=== PATIENT | female | born 1935 | race Caucasian/White ===

== ENCOUNTER 2022-12-12 14:05 | Observation (INO) | payer MEDICARE, BC ==
[2022-12-12 15:06] LABS: #Monocytes 0.8 thou/uL (0.11-0.59); #Neutrophils 6.4 thou/uL (1.40-6.50); %Basophils 0.1 % (0.0-1.0); %Eosinophils 0.6 % (0.0-10.0); %Lymphocytes 11.7 % (21.0-51.0); %Monocytes 9.7 % (0.0-10.0); %Neutrophils 77.8 % (42.0-75.0); Mean Corpuscular HGB CONC 34.7 g/dL (32.0-36.0); Mean Corpuscular Hemoglobin 32.3 pg (27.0-31.0); Mean Corpuscular Volume 93.1 fl (78.0-98.0); Mean Platelet Volume 7.1 fL (7.4-10.4); Platelet Count 202 10x3/uL (130-400); RBC Distribution Width 12.4 % (11.5-14.5); Red Blood Cell (RBC) Count 4.03 mill/uL (4.20-5.40); White Blood Cell (WBC) Count 8.3 10x3/uL (4.8-10.8)
[2022-12-12 15:30] LABS: ALT (SGPT) 26 U/L (8-55); AST (SGOT) 29 U/L (5-34); Albumin 4.1 g/dL (3.4-4.8); Alkaline Phosphatase 45 U/L (40-110); Anion Gap 16 mmol/L (10-20); BUN (Urea Nitrogen) 24 mg/dL (9.8-20.1); Bilirubin, Total 1.1 mg/dL (0.2-1.2); Calc. Creatinine Clearance 0 mL/min (70-130); Calcium 9.6 mg/dL (7.8-10.44); Carbon Dioxide 24 mmol/L (23-31); Chloride 98 mmol/L (98-107); Estimated GFR 41; Globulin 3.1 g/dL (2.4-3.5); Glucose 125 mg/dL (83-110); Potassium 3.1 mmol/L (3.5-5.1); Protein, Total 7.2 g/dL (5.8-8.1); Sodium 135 mmol/L (136-145)
[2022-12-12] MEDS ORDERED: Potassium Chloride 20 MEQ in Premix Bag 1 BAG IVPB SCH (16:00)
[2022-12-12] MEDS ORDERED: Potassium Chloride 20 MEQ/100 ML PREMIX BAG ONE ×2 (16:11→16:12)
[2022-12-12] MEDS ORDERED: Electrolyte Replacement Protocol 1 EACH FS SCH (18:30)
[2022-12-12 18:45] LABS: Magnesium 1.5 mg/dL (1.6-2.6)
[2022-12-12] MEDS ORDERED: Acetaminophen 325 MG TAB PO PRN (19:24)
[2022-12-12] MEDS ORDERED: Ondansetron ODT 4 MG TAB PO PRN (19:24)
[2022-12-12] MEDS ORDERED: Ondansetron PF 4 MG/2 ML Vial IVP PRN (19:24)
[2022-12-12] MEDS ORDERED: Magnesium Sulfate 2 GM in Sodium Chloride 0.9% 250 ML 250 ML IVPB SCH (19:30)
[2022-12-12] MEDS ORDERED: Magnesium 2 GM/50 ML(in water) 2 GM in Premix Bag 1 BAG IVPB SCH (19:45)
[2022-12-12 20:15] LABS: Anion Gap 13 mmol/L (10-20); BUN (Urea Nitrogen) 24 mg/dL (9.8-20.1); Calc. Creatinine Clearance 0 mL/min (70-130); Calcium 9.4 mg/dL (7.8-10.44); Carbon Dioxide 23 mmol/L (23-31); Chloride 101 mmol/L (98-107); Estimated GFR 49; Glucose 126 mg/dL (83-110); Potassium 3.7 mmol/L (3.5-5.1); Sodium 133 mmol/L (136-145)
[2022-12-12 20:30] VITALS: BMI 20.7
[2022-12-12 20:40] LABS: Bacteria/HPF None Seen HPF (None Seen); Bilirubin Negative (Negative); Blood, Urine Negative (Negative); CAUTI Indications for Culture Dysuria,urgency,freq; Clarity Clear (Clear); Glucose, Urine (Dipstick) Normal (Negative); Ketone, Urine Negative (Negative); Leukocyte Negative Leu/uL (Negative); Nitrite Negative (Negative); Protein, Urine (Dipstick) Negative (Neg-Trace); RBC/HPF 0-3 HPF (0-3); Specific Gravity, Urine 1.012 (1.002-1.036); Squamous Epithelial None Seen HPF (0-3); Urobilinogen Normal mg/dL (Less than 2); WBC/HPF 0-3 HPF (0-3); pH, Urine 6.5 (5.0-9.0)
[2022-12-12 20:41] LABS: Urine Culture Reflex No No
[2022-12-12] MEDS ORDERED: Furosemide 40 MG/4 ML VIAL SLOW IVP SCH (23:45)
[2022-12-13 06:04] LABS: #Eosinphils 0.1 thou/uL (0.0-0.7); #Lymphocytes 1.4 thou/uL (1.20-3.40); #Monocytes 0.9 thou/uL (0.11-0.59); #Neutrophils 3.5 thou/uL (1.40-6.50); %Basophils 0.7 % (0.0-1.0); %Eosinophils 1.3 % (0.0-10.0); %Monocytes 14.5 % (0.0-10.0); %Neutrophils 59.4 % (42.0-75.0); Hemoglobin 12.5 g/dL (12.0-16.0); Mean Corpuscular HGB CONC 34.1 g/dL (32.0-36.0); Mean Corpuscular Hemoglobin 31.8 pg (27.0-31.0); Mean Corpuscular Volume 93.3 fl (78.0-98.0); Mean Platelet Volume 7.3 fL (7.4-10.4); Platelet Count 193 10x3/uL (130-400); RBC Distribution Width 12.4 % (11.5-14.5); Red Blood Cell (RBC) Count 3.93 mill/uL (4.20-5.40); White Blood Cell (WBC) Count 5.9 10x3/uL (4.8-10.8)
[2022-12-13 06:26] LABS: Anion Gap 12 mmol/L (10-20); BUN (Urea Nitrogen) 23 mg/dL (9.8-20.1); Calc. Creatinine Clearance 36 mL/min (70-130); Calcium 9.3 mg/dL (7.8-10.44); Carbon Dioxide 26 mmol/L (23-31); Chloride 100 mmol/L (98-107); Estimated GFR 64; Glucose 99 mg/dL (83-110); Magnesium 1.8 mg/dL (1.6-2.6); Potassium 3.4 mmol/L (3.5-5.1); Sodium 135 mmol/L (136-145)
[2022-12-13] MEDS: Furosemide 40 MG/4 ML VIAL SLOW IVP SCH ×2 (06:49→14:11)
[2022-12-13] MEDS ORDERED: Potassium Chloride 20 MEQ TAB PO SCH ×2 (08:00)
[2022-12-13] MEDS ORDERED: Magnesium 2 GM/50 ML(in water) 2 GM in Premix Bag 1 BAG IVPB SCH (09:00)
[2022-12-13] MEDS ORDERED: Dabigatran 150 mg Capsule PO SCH (09:00)
[2022-12-13] MEDS ORDERED: Aspirin 81 mg Enteric Coated Tablet PO SCH (09:00)
[2022-12-13] MEDS ORDERED: Rosuvastatin 20 MG TAB PO SCH (09:00)
[2022-12-13] MEDS ORDERED: Amiodarone 200 MG TAB PO SCH (09:00)
[2022-12-13 14:17] LABS: Potassium 3.7 mmol/L (3.5-5.1)
[2022-12-13 16:15] VITALS: TEMP 97.7
[2022-12-13 19:22] VITALS: BP 143/69
== END 2022-12-13 19:30 | disposition home or self-care (01) ==
LOC: ERS 14:05 → 2SW 17:54
PROVIDERS: ADMIT Family Medicine; ATTEND Family Medicine
DX: R60.0 Localized edema (principal); T46.1X5A Adverse effect of calcium-channel blockers, initial encounter; I13.0 Hypertensive heart and chronic kidney disease with heart failure and stage 1 through stage 4 chronic kidney disease, or unspecified chronic kidney disease; N18.9 Chronic kidney disease, unspecified; I50.9 Heart failure, unspecified; N17.9 Acute kidney failure, unspecified; E87.6 Hypokalemia; R55 Syncope and collapse; E83.42 Hypomagnesemia; I48.20 Chronic atrial fibrillation, unspecified; E78.5 Hyperlipidemia, unspecified; Z79.01 Long term (current) use of anticoagulants; Z79.82 Long term (current) use of aspirin; Z79.899 Other long term (current) drug therapy; Z88.0 Allergy status to penicillin; Z88.5 Allergy status to narcotic agent
CPT/HCPCS: 36415; 71045; 80048; 80053; 81001; 83735; 83880; 85025; 93005; 93798; 96365; 96366; 96375; 96376; G0378; J1940; J3475; J3480

== ENCOUNTER 2023-01-01 13:50 | Observation (INO) | payer MEDICARE, BC ==
[2023-01-01 14:36] LABS: #Eosinphils 0.1 thou/uL (0.0-0.7); #Lymphocytes 1.6 thou/uL (1.20-3.40); #Monocytes 0.7 thou/uL (0.11-0.59); %Basophils 0.4 % (0.0-1.0); %Lymphocytes 21.1 % (21.0-51.0); %Monocytes 9.3 % (0.0-10.0); %Neutrophils 68.2 % (42.0-75.0); Hemoglobin 13.7 g/dL (12.0-16.0); Mean Corpuscular HGB CONC 34.7 g/dL (32.0-36.0); Mean Corpuscular Hemoglobin 32.1 pg (27.0-31.0); Mean Corpuscular Volume 92.4 fl (78.0-98.0); Mean Platelet Volume 6.6 fL (7.4-10.4); Platelet Count 255 10x3/uL (130-400); RBC Distribution Width 12.5 % (11.5-14.5); Red Blood Cell (RBC) Count 4.27 mill/uL (4.20-5.40); White Blood Cell (WBC) Count 7.4 10x3/uL (4.8-10.8)
[2023-01-01 14:57] LABS: ALT (SGPT) 19 U/L (8-55); AST (SGOT) 23 U/L (5-34); Albumin 4.3 g/dL (3.4-4.8); Alkaline Phosphatase 80 U/L (40-110); Anion Gap 15 mmol/L (10-20); BUN (Urea Nitrogen) 19 mg/dL (9.8-20.1); Bilirubin, Total 1.1 mg/dL (0.2-1.2); Calc. Creatinine Clearance 0 mL/min (70-130); Calcium 9.7 mg/dL (7.8-10.44); Carbon Dioxide 24 mmol/L (23-31); Chloride 99 mmol/L (98-107); Estimated GFR 63; Globulin 3.3 g/dL (2.4-3.5); Glucose 97 mg/dL (83-110); Potassium 3.6 mmol/L (3.5-5.1); Protein, Total 7.6 g/dL (5.8-8.1); Sodium 134 mmol/L (136-145)
[2023-01-01] MEDS ORDERED: Acetaminophen 325 MG TAB PO PRN (16:06)
[2023-01-01] MEDS ORDERED: Ondansetron PF 4 MG/2 ML Vial IVP PRN (16:06)
[2023-01-01] MEDS ORDERED: HYDROcodone/Acetaminophen 5/325 mg Tablet PO PRN (16:06)
[2023-01-01] MEDS ORDERED: Senokot S 8.6-50 MG TAB PO PRN (16:06)
[2023-01-01 18:10] VITALS: BMI 20.1
[2023-01-01 18:45] LABS: Troponin I Less than 0.010 ng/mL (< 0.028)
[2023-01-01] MEDS: Apixaban 2.5 MG TAB PO SCH (20:40)
[2023-01-01] MEDS: Metoprolol Tartrate 25 MG TAB PO SCH (20:40)
[2023-01-01] MEDS: Amiodarone 200 MG TAB PO SCH (20:40)
[2023-01-01 20:47] LABS: Troponin I Less than 0.010 ng/mL (< 0.028)
[2023-01-01] MEDS ORDERED: Rosuvastatin 20 MG TAB PO SCH (21:00)
[2023-01-02 04:22] LABS: Hemoglobin A1c 5.3 % (4.0-6.0)
[2023-01-02] MEDS ORDERED: Aspirin Chewable 81 MG TAB PO SCH (09:00)
[2023-01-02] MEDS ORDERED: Regadenoson 0.4 MG/5 ML SYRINGE ONE (09:16)
[2023-01-02] MEDS: Apixaban 2.5 MG TAB PO SCH (12:03)
[2023-01-02] MEDS: Amiodarone 200 MG TAB PO SCH (12:03)
[2023-01-02] MEDS: Metoprolol Tartrate 25 MG TAB PO SCH (12:04)
[2023-01-02 15:09] VITALS: BP 140/66; TEMP 98
== END 2023-01-02 16:45 | disposition home or self-care (01) ==
LOC: ERS 13:50 → 2NO 15:59
PROVIDERS: ADMIT Family Medicine; ATTEND Family Medicine
DX: R07.89 Other chest pain (principal); I08.3 Combined rheumatic disorders of mitral, aortic and tricuspid valves; I11.0 Hypertensive heart disease with heart failure; I50.32 Chronic diastolic (congestive) heart failure; I48.0 Paroxysmal atrial fibrillation; E78.5 Hyperlipidemia, unspecified; Z79.01 Long term (current) use of anticoagulants; Z79.82 Long term (current) use of aspirin; Z79.899 Other long term (current) drug therapy; Z88.0 Allergy status to penicillin; Z88.5 Allergy status to narcotic agent
CPT/HCPCS: 71045; 78452; 80053; 80061; 83036; 84443; 84484 ×2; 85025; 93005; 93017; 93306; 99285; A9500; G0378 ×3; 36415; J2785